=== PATIENT | male | born 1985 | race Caucasian/White ===

== ENCOUNTER → 2017-09-05 | Outpatient (CLI) | payer OTHER ==
[~2017-09-05] MED LIST: IBUP-1050 PO
[2017-09-05 14:38] LABS: BASO % 0.5 %; BASO ABS # 0.04 K/uL (0-0.2); EOS % 0.6 %; EOS ABS # 0.05 K/uL (0-0.5); HEMATOCRIT 45.7 % (42-52); HEMOGLOBIN 16.1 g/dL (14.0-18.0); IG# 0.01 K/uL (0.00-0.02); LYMPH % 32.7 %; LYMPH ABS # 2.52 K/uL (1.2-3.4); MEAN CELL VOLUME 87.7 fL (80-100); MEAN CORPUSCULAR HEMOGLOBIN 30.9 pg (25-34); MEAN CORPUSCULAR HGB CONC 35.2 g/dl (32-36); MEAN PLATELET VOLUME 10.5 fL (7.4-10.4); MONO % 5.1 %; MONO ABS # 0.39 K/uL (0.11-0.59); PLATELET COUNT 333 K/uL (130-400); RED CELL DISTRIBUTION WIDTH CV 12.7 % (11.5-14.5); RED CELL DISTRIBUTION WIDTH SD 40.6 fL (36.4-46.3); WHITE BLOOD COUNT 7.71 K/uL (4.8-10.8)
[2017-09-05 15:08] LABS: ALBUMIN 4.2 gm/dl (3.4-5.0); ALT/SGPT 35 U/L (12-78); AST/SGOT 18 U/L (15-37); BLOOD UREA NITROGEN 8 mg/dl (7-18); CARBON DIOXIDE 25 mmol/L (21-32); CHOLESTEROL 109 mg/dl (0-200); GLUCOSE,FASTING 98 mg/dl (70-99); POTASSIUM 3.5 mmol/L (3.5-5.1); SODIUM 138 mmol/L (136-145); TOTAL PROTEIN 8.2 gm/dl (6.4-8.2)
[2017-09-05 15:17] LABS: ALKALINE PHOSPHATASE 74 U/L (45-117); LDL CHOLESTEROL CALCULATED 65 mg/dl
[2017-09-06 06:41] LABS: HEMOGLOBIN A1C 5.4 % (4.5-5.6)
== END | disposition home or self-care (01) ==
LOC: C.CPL 13:19
PROVIDERS: ATTEND Psychiatry & Neurology Neurodevelopmental Disabilities
DX: Z51.81 Encounter for therapeutic drug level monitoring (principal); Z79.899 Other long term (current) drug therapy